=== PATIENT | male | born 1940 | race Caucasian/White ===

== ENCOUNTER 2020-11-24 10:12 | Outpatient (REF) | payer MEDICARE, SELFPAY ==
[2020-11-24 10:48] LABS: MANUAL DIFF FLAG NO
[2020-11-24 10:53] LABS: Basophils Percent Auto 0.4 % (0-2); Eosinophils Absolute Auto 0.1 X10*3/uL (0.0-0.4); Eosinophils Percent Auto 1.1 % (0-4); Hematocrit 46.3 % (42-52); Hemoglobin 14.5 g/dl (14.0-18.0); Imm Gran Abs Auto 0.03 X10*3/uL (0.00-0.03); Imm Gran Pct Auto 0.4 % (0.0-0.4); Lymphocytes Absolute Auto 1.9 X10*3/uL (1.2-4.9); Lymphocytes Percent Auto 24.3 % (20-40); Mean Corpuscular HGB Conc 31.3 g/dl (31.0-36.0); Mean Corpuscular Hemoglobin 27.4 pg (27.0-33.0); Mean Corpuscular Volume 87.5 fL (80-98); Mean Platelet Volume 9.1 fL (9.4-12.4); Monocytes Absolute Auto 0.7 X10*3/uL (0.1-1.2); Monocytes Percent Auto 8.5 % (2-11); Neutrophils Absolute Auto 5.2 X10*3/uL (2.0-8.3); Neutrophils Percent Auto 65.3 % (45-73); Platelet Count 256 X10*3/uL (160-400); Red Blood Count 5.29 X10*6/uL (4.60-5.80); Red Cell Distribution Width 13.9 % (11.0-16.0); White Blood Count 7.9 X10*3/uL (4.8-10.8)
[2020-11-24 11:18] LABS: Anion Gap 12 (12-20); Blood Urea Nitrogen 37 mg/dL (9-16); Calcium 9.1 mg/dL (8.4-10.2); Carbon Dioxide 24 mmol/L (22-29); Chloride 105 mmol/L (96-108); Estimated Glomerular Filt Rate 37; Phosphorus 3.1 mg/dL (2.7-4.5); Potassium 5.1 mmol/L (3.3-5.1); Sodium 136 mmol/L (135-145); Uric Acid 6.6 mg/dL (3.4-7.0)
[2020-11-24 11:42] LABS: Vitamin D 25-OH Total 31.6 ng/mL (>30)
[2020-11-24 11:55] LABS: Total Protein Urine Random 14 mg/dL (<12)
[2020-11-26 09:52] LABS: PTHI 55 pg/mL (14-64)
== END 2020-11-24 10:13 | disposition home or self-care (01) ==
LOC: HO.LAB 10:12
PROVIDERS: PCP Nurse Practitioner Family; Visit Provider Internal Medicine Nephrology
DX: I12.9 Hypertensive chronic kidney disease with stage 1 through stage 4 chronic kidney disease, or unspecified chronic kidney disease (principal); N18.32 Chronic kidney disease, stage 3b; E11.22 Type 2 diabetes mellitus with diabetic chronic kidney disease; N28.89 Other specified disorders of kidney and ureter
CPT/HCPCS: 36415; 80051; 82306; 82310; 82565; 83735; 83970; 84100; 84156; 84520; 84550; 85025